=== PATIENT | male | born 1975 | race Caucasian/White ===

== ENCOUNTER 2018-11-04 08:50 | Day surgery (SDC) | payer BC ==
[~2018-11-04] VITALS: Ht 177.8 cm; Wt 97.1 kg
[2018-11-04] VITALS (14 sets, daily range): BP systolic 95–116; BP diastolic 57–72; PULSE 62–73; RESP 13–29; Ht 177.8 cm; Wt 97.1 kg
[2018-11-04] MEDS ORDERED: BROM5CAP12 PO (09:18)
[2018-11-04] MEDS ORDERED: LACTATED RINGER'S 1,000 ML IV SCH (10:30)
--- NOTE | 2018-11-04 11:41 | HPN ---
Date/Time of Note Date/Time of Note DATE: 11/04/18 TIME: 11:41 Interval H&P Admission Note Pt. seen H&P reviewed: No system changes HENRRY DE LEON M.D. Nov 04, 2018 11:41
--- NOTE | 2018-11-04 11:59 | PREAC ---
Date/Time of Note Date/Time of Note DATE: 11/04/18 TIME: 11:57 Anesthesia Eval and Record Evaluation Time Pre-Procedure Interview DATE: 11/04/18 TIME: 11:57 Age 43 Sex male NPO: 8 hrs Preoperative diagnosis right saji bullosa Planned procedure septoplasty, ethmoidectomy, removal of right saji bullosa, sinus irrigation and nasal endoscopy Past Medical History Past Medical History: Includes (elevated prolactin) GI: Obesity Surgery & Anesthesia Issues No known issue Meds Anticoagulation: No Beta Eliud within 24 hr: No Reason Beta Eliud not given: Pt. not on B-Eliud Reported Medications Bromocriptine Mesylate* (Parlodel*) 5 Mg Capsule, 5 MG PO BID, CAP 11/04/18 Current Medications Lactated Ringer's 1,000 ml @ 0 mls/hr Q0M IV Last administered on 11/04/18at 10:12; Admin Dose 75 MLS/HR; Start 11/04/18 at 10:30 Meds reviewed: Yes Allergies Coded Allergies: No Known Allergy (Unverified , 11/04/18) Allergies Reviewed: Yes Labs/Studies Labs Reviewed: Reviewed by anesthesiologist test: N/A Pre-procedure Exam Last vitals Vital Signs Date Temp Pulse Resp B/P (MAP) Pulse Ox O2 O2 Flow FiO2 Time Delivery Rate 11/04/18 97.7 63 16 114/65 97 09:20 (81) Airway: Adequate mouth opening, Adequate thyromental dist Mallampati: Mallampati II Teeth: Normal Lung: Normal Heart: Normal ASA Physical Status ASA physical status: 2 Emergency: None Planned Anesthetic General/MAC: ETT Planned Pain Management Parenteral pain med Pre-operative Attestations Prior to commencing anesthesia and surgery, the patient was re-evaluated, there was verification of: *The patient's identity *The results of appropriate recent lab work and preoperative vital signs *The above evaluation not changing prior to induction *Anesthetic plan, risk benefits, alternative and complications discussed with patient/family; questions answered; patient/family understands, accepts and wishes to proceed. Embedded Nurse used DOMINIC PONCE MD Nov 04, 2018 11:59
[2018-11-04] MEDS ORDERED: FENTAnyl 50 MCG/ML VIAL IV PRN ×3 (12:00)
[2018-11-04] MEDS ORDERED: DIPHENHYDRAMINE 50 MG INJ IV PRN (12:00)
[2018-11-04] MEDS ORDERED: ONDANSETRON 4 MG INJ IV PRN (12:00)
[2018-11-04] MEDS ORDERED: OXYCODONE/ACETAMINOPHEN (5/325) TAB PO PRN (12:00)
[2018-11-04] MEDS ORDERED: PROCHLORPERAZINE 10 MG INJ IV PRN (12:00)
[2018-11-04] MEDS ORDERED: HYDROmorphONE 1 MG/5 ML IV SYRINGE IV PRN ×3 (12:00)
[2018-11-04] MEDS ORDERED: MEPERIDINE 25 MG INJ IV PRN (12:00)
[2018-11-04] MEDS ORDERED: COCAINE 4% 4 ML TOP ONE ×2 (12:06→12:30)
[2018-11-04] MEDS ORDERED: LIDOCAINE 1%/EPI 30 ML INJ ONE (12:06)
[2018-11-04] MEDS ORDERED: ROCURONIUM 50 MG INJ ONE (12:22)
[2018-11-04] MEDS ORDERED: NEOSTIGMINE 3 MG/3 ML SYRINGE ONE (12:22)
[2018-11-04] MEDS ORDERED: SUCCINYLCHOLINE CHLORIDE 100 MG/5 ML SYG IV ONE (12:22)
[2018-11-04] MEDS ORDERED: SEVOFLURANE 15 MIN ONE (12:22)
[2018-11-04] MEDS ORDERED: PROPOFOL 20 ML ONE ×2 (12:22→12:38)
[2018-11-04] MEDS ORDERED: LIDOCAINE 2% (SDV) 5 ML INJ ONE (12:22)
[2018-11-04] MEDS ORDERED: MIDAZOLAM 1 MG/ML 2 ML INJ ONE (12:22)
[2018-11-04] MEDS ORDERED: FENTAnyl 50 MCG/ML VIAL ONE (12:22)
[2018-11-04] MEDS ORDERED: GLYCOPYRROLATE 0.4 MG INJ ONE (12:22)
[2018-11-04] MEDS ORDERED: LIDOCAINE 1%/EPI 30 ML INJ INJ ONE (12:30)
[2018-11-04] MEDS ORDERED: ONDANSETRON 4 MG INJ ONE (12:38)
[2018-11-04] MEDS ORDERED: DEXAMETHASONE 4 MG/ML 5 ML INJ ONE (12:38)
[2018-11-04] MEDS ORDERED: FAMOTIDINE 20 MG INJ ONE (12:38)
[2018-11-04] MEDS ORDERED: CEFAZOLIN 1 GM INJ ONE (12:45)
[2018-11-04] MEDS ORDERED: EPHEDrine 25 MG/5 ML SYG ONE (12:56)
[2018-11-04] MEDS ORDERED: BACITRACIN/POLYMYXIN 0.9 GM OINT TOP ONE (13:19)
--- NOTE | 2018-11-04 13:44 | OPR ---
Date/Time of Note Date/Time of Note DATE: 11/04/18 TIME: 13:39 Operative Report Procedure Date: Nov 04, 2018 Preoperative Diagnosis 1. SEPTAL DEVIATION. 2. RIGHT BRICE BULLOSA LESION. 3. PITUITARY MASS. 4. CHRONIC NASAL OBSTRUCTION. 5. CHRONIC SINUS DISEASE. Postoperative Diagnosis SAME. Operation/Procedure Performed 1. SEPTOPLASTY VIA SMR. 2. REMOVAL OF RIGHT BRICE BULLOSA LESION. 3. SINUS IRRIGATION. 4. NASAL ENDOSCOPY. 5. MULTIPLE SINUSOTOMIES. 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 Anesthesia Type: general (WITH OT INTUBATION. 17 CC 1% LIDOCAINE WITH EPI 1:100,000 SOLN. 4% 4CC COCCAINE TOPICAL.) Estimated Blood Loss: 10 - 50 ml's Transfusion none Specimen ETHMOID MUCOSA AND BONE. SEPTAL CARTILAGE AND BONE. Grafts/Implants none Tubes/Drains NONE. Complications none Pt Condition Post Procedure: stable Disposition: PACU Indications TO IMPROVE NASAL BREATHING AND RID INFECTION. Procedure Description SEE DICTATED OPERATIVE REPORT. HENRRY DE LEON M.D. Nov 04, 2018 13:44
--- NOTE | 2018-11-04 13:46 | PDOCDIS ---
Discharge Instructions DIAGNOSIS Discharge Diagnosis 1. CHRONIC SINUS DZ. 2. SEPTAL DEVIATION. 3. RIGHT BRICE BULLOSA. CONDITION [id number] Patient Condition: [id number] Good HOME CARE INSTRUCTIONS: [id number] Diet Instructions: [id number] Regular ACTIVITY: [id number] Activity Restrictions: [id number] Slowly Increase Activity Rest between Activity Avoid heavy lifting Avoid Heavy Housework [id number] Bathing Restrictions: Zenzq3y Tub Bath FOLLOW UP/APPOINTMENTS Follow-up Plan MY OFFICE IN 10 TO 14 DAYS. SCHOOL/WORK RELEASE May return to School/Work on: Nov 11, 2018 May return to School/Work with: No Restrictions HENRRY DE LEON M.D. Nov 04, 2018 13:46
--- NOTE | 2018-11-04 13:52 | PAC ---
Date/Time of Note Date/Time of Note DATE: 11/04/18 TIME: 13:52 Post-Anesthesia Notes Post-Anesthesia Note Last documented vital signs Vital Signs Date Temp Pulse Resp B/P (MAP) Pulse Ox O2 O2 Flow FiO2 Time Delivery Rate 11/04/18 97.7 63 16 114/65 97 09:20 (81) Activity: WNL Respiratory function: WNL Cardiovascular function: WNL Mental status: Baseline Pain reasonably controlled: Yes Hydration appropriate: Yes Nausea/Vomiting absent: Yes Comments BP: 115/70 HR: 72 RR: 15 T: 98 SaO2: 98% DOMINIC PONCE MD Nov 04, 2018 13:52
--- NOTE | 2018-11-05 06:40 | OPR ---
DATE OF OPERATION: 11/04/2018 SURGEON: Macario Sandhu MD PREOPERATIVE DIAGNOSES: 1. Septal deviation. 2. Chronic sinusitis with ethmoiditis. 3. Right saji bullosa lesion. 4. Pituitary tumor. POSTOPERATIVE DIAGNOSES: 1. Septal deviation. 2. Chronic sinusitis with ethmoiditis. 3. Right saji bullosa lesion. 4. Pituitary tumor. OPERATION PERFORMED: 1. Septoplasty using submucosal resection technique. 2. Ethmoidectomy. 3. Removal of a right saji bullosa lesion. 4. Nasal endoscopy using 0 degree sinus scope. 5. Multiple sinusotomies with irrigation. ESTIMATED BLOOD LOSS: Approximately 20 mL. COMPLICATIONS: No complications. SPECIMENS SENT TO LAB: Ethmoid mucosa and bone, septal cartilage and bone. ANESTHESIA:. General anesthesia, 1% lidocaine with epinephrine 1:100,000 units. The patient also mendez d topical cocaine 4% using 4 mL. The patient was given IV Ancef before the case was begun. INDICATIONS: The patient is a 43-year-old male who has a history of chronic sinusitis with chronic n gloria obstruction. The patient also has been found to have a pituitary tumor. The patient is consent ed for a nasal procedure to help alleviate his nasal obstruction and help rid underlying sinus diseas e. Risks, benefits, and alternatives have been explained thoroughly to the patient, the risk of infe ction, bleeding, scar formation, possible septal perforation as well as possible intraocular and intr acranial complications seen with the procedure. He signed a consent once his questions were answered . 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 The patient was also found to have a mass in the sphenoid sinus. There were no signs of malignancies seen during the procedure. DESCRIPTION OF PROCEDURE: The patient was taken to the operating room, placed on the table in supine position, made comfortable by the anesthesiologist, ____. The patient had EKG, saturation monit or and blood pressure cuff applied. At this point, the patient had a brief started IV in the preindu ction area which was infusing well. The patient was given a mask inhalation agent and then sprayed w ith lidocaine. After the patient was adequately sedated, the patient was successfully orotracheally intubated with a cuff at the level of the mouth and the eyes were left untapped ____. At this point ____ stable and a brief time-out with patient identification and procedures ____ and all were in [facility] ement. At this point, the patient was draped out in usual fashion. The nasal cavity was then inspected and the patient was found to have right nasal septal deviation. The patient's nose was injected using 1% lidocaine with epinephrine 100,00, 17 mL, to the floor of t he nose and the septal region. ____ inject then the vomer plate area. The nasal spine was also inje cted. There is also injection along the lateral dorsum of the nose with an intercartilage approach. At this point, cocaine was placed on cottonoids and then placed in the anterior ethmoid and behind t he middle turbinate areas. At this point, the cottonoids were then removed and the maximal ____ was achieved. The patient was found on endoscopic evaluation with a 0 degree scope to have enlarged righ t middle turbinate. The nasal speculum was then used to reduce the saji bulla. The saji bulla le fozia was then outfractured toward the medial wall of maxillary sinus and flattened. This gave acces s to the middle meatal where an upbiting Michell forceps was used to remove polypoid tissue and eth moid mucosa and bone from the right side of the nose. The left side was also removed in a similar fa shion. At this point, there is no amount of bleeding and the sinuses were then ____ in the maxillary sinus area on the right side. An endoscopic scope was then placed down the right side as were foun d to have hypertrophy of both. Sinus irrigations were accomplished by sticking the ammunition components inspector into th e right maxillary sinus and flushing with normal saline solution with bacitracin added. The left max illary sinus was done in a similar fashion through the middle meatus. At this point, the sphenoid sinus was approached and appeared to be what looked like a mass in the sp henoid sinus. Care was taken not to violate this area. There was no bleeding seen. There was no ero fozia seen in the sphenoid sinus. At this point, the septoplasty procedure was performed by making a hemitransfixion incision on the le ft side of the nose with a #15 Bard-Leland sharp stainless steel blade. A mucoperichondrial flap jabier vated on the left side in a posterior direction. At this point, a #15 Bard-Leland scalpel was then u sed to incise the cartilage to the right side with a [place] elevator was advanced. A mucoperichondri al flap was elevated on the right side as well. The deviated septal cartilage and bone were then rem gi with Arthur forceps. This allowed the septum to swing back toward the midline. At this poin t, there was minimal bleeding and the hemitransfixion incision closed with a 4-0 Vicryl suture in sim ple interrupted fashion. Plication sutures were also applied to the septum in the midline to prevent hematoma formation. At this point, no further bleeding was noted. The nasal cavity as well as the nasopharynx suctioned of blood-tinged secretions. This was done with a Colvin suction. At this poi nt, bacitracin ointment was applied to the nose with a nasal packing and ____ to end the procedure. To be noted that the eye contents were evaluated through the entire case and there was no of movement of the eye during dissection. The patient tolerated the procedure well. Sponge count correct. No complications during the procedu re. The patient was extubated in the operating room, taken to recovery room where he is expected to be discharged home ____. Dictated By: MACARIO ANDREWS/JACKY Conf#: [id number] DID#: [id number]
== END 2018-11-04 16:00 | disposition home or self-care (01) ==
LOC: SDS 08:50
PROVIDERS: ATTEND Otolaryngology Otolaryngology/Facial Plastic Surgery
DX: J34.2 Deviated nasal septum (principal); J32.2 Chronic ethmoidal sinusitis; D49.7 Neoplasm of unspecified behavior of endocrine glands and other parts of nervous system; J34.89 Other specified disorders of nose and nasal sinuses
CPT/HCPCS: 30140; 30520; 31240; 31254; 88300; 88304; J0690; J1100; J1170; J2175; J2250; J2405; J2710; J3010; Z7512; Z7610

== ENCOUNTER 2019-02-18 09:16 | Emergency (ER) | payer BC ==
[~2019-02-18] VITALS: Wt 79.0 kg
[~2019-02-18 09:16] MED LIST: BROM5CAP12 PO
[2019-02-18 09:22] VITALS: BP 117/63; PULSE 67; RESP 18; Wt 79.0 kg
== END 2019-02-18 12:01 | disposition home or self-care (01) ==
LOC: FTE 09:16
DX: G93.0 Cerebral cysts (principal); F17.210 Nicotine dependence, cigarettes, uncomplicated; Z85.841 Personal history of malignant neoplasm of brain
CPT/HCPCS: 36415; 70450; 80053; 81003; 85025; Z7502